=== PATIENT | female | born 1945 | race Caucasian/White ===

== ENCOUNTER → 2016-10-04 | Outpatient (CLI) | payer OTHER, MEDICARE ==
--- NOTE | 2016-10-04 14:40 | US ---
Right lower extremity deep venous ultrasound History: New onset right calf pain. History of DVT. Has been off Warfarin since April 2016. History of IVC filter. Technique: Grayscale and Doppler imaging was performed of the right lower extremity deep venous syst em. Findings: Extensive deep venous thrombosis is seen throughout the right lower extremity. This is see n in the common iliac vein, common external vein, common femoral vein, femoral vein, and popliteal ve in. The calf veins are not well visualized. 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 Impression: Extensive deep venous thrombosis throughout the right lower extremity as above. Message was left for Dr. Vikram Alvarado on 04 October 2016. The patient was also sent back over to [facility] as requested.
== END ==
LOC: FIMAGING 13:02
PROVIDERS: ATTEND Internal Medicine Hematology & Oncology
DX: I82.401 Acute embolism and thrombosis of unspecified deep veins of right lower extremity (principal)

== ENCOUNTER → 2016-10-06 | Outpatient (CLI) | payer OTHER, MEDICARE ==
--- NOTE | 2016-10-06 14:54 | CT ---
CT Brain (Without Contrast) at 1406 hours History: Chronic right subdural hematoma, follow-up. Comparison: September 17, 2016. Technique: Axial computed tomographic images of the brain without contrast. Dose reduction techniques were utilized. Findings: Right extra-axial fluid collection measuring 12 mm in diameter on the coronal series resul ting in mass effect best identified on the coronal series with partial mass effect on the right later al ventricle consistent with chronic subdural hygroma again noted similar to the August 2016 study. No evidence of associated acute hemorrhage. Ventricles, cisterns, and sulci are otherwise widened consistent with atrophy. No hydrocephalus, midl ine shift/herniation, or acute epidural/subdural hematomas. No acute intraparenchymal hemorrhage or m ass effect. Cerebrovascular atherosclerosis. Hypodensities in the white matter of bilateral cerebral hemispheres. Bone windows demonstrate no displaced fractures. Paranasal sinuses and mastoid air cell s are clear. Impression: 1. No significant change in right frontal hypodense chronic subdural hygroma. 2. No acute hemorrhage, hydrocephalus, or mass effect. 3. Cerebrovascular atherosclerosis. 4. No definite acute infarct. 5. Mild cerebral atrophy.
== END ==
LOC: CIMAGING 13:51
PROVIDERS: ATTEND Physician Assistant Surgical
DX: I62.00 Nontraumatic subdural hemorrhage, unspecified (principal); I67.2 Cerebral atherosclerosis
CPT/HCPCS: 70450-PO

== ENCOUNTER → 2016-12-16 | Outpatient (CLI) | payer OTHER, MEDICARE | LOC: BHFA 13:30 | PROVIDERS: ATTEND Internal Medicine Interventional Cardiology | DX: R00.1 Bradycardia, unspecified (principal) ==

== ENCOUNTER 2017-01-17 16:50 | Emergency (ER) | payer OTHER, MEDICARE ==
[2017-01-17 17:02] VITALS: PULSE 69; TEMP 97.9
--- NOTE | 2017-01-17 17:35 | EDPHY ---
H & P Time Seen by Provider: 01/17/17 17:06 HPI/ROS: CHIEF COMPLAINT: Headache HISTORY OF PRESENT ILLNESS: 71-year-old female with a history of subdural hematoma, currently on Coumadin, presents with a headache. 2 weeks ago the trunk of her car fell onto her head. She did not have a headache immediately. However she developed vague headache today, associated with increasing pressure when she bends over. Similar to prior episode of subdural hematoma. No neck pain. Last INR was 1.9. REVIEW OF SYSTEMS: Constitutional: No fever, no chills Eyes: No visual changes ENT: No sore throat Respiratory: No cough, no shortness of breath Cardiac: No chest pain Gastrointestinal: No nausea, no vomiting, no abdominal pain Genitourinary: no dysuria Musculoskeletal: No leg pain or swelling Skin: No rash Neurological: no numbness, no weakness Psychiatric: No depression Past Medical/Surgical History: DVT Subdural hematoma Social History: Smoking Status: Former smoker Physical Exam: General Appearance: Alert, pleasant and smiling Eyes: Pupils equal and round, no conjunctival pallor ENT, Mouth: Mucous membranes moist Neck: Normal inspection Respiratory: Lungs are clear to auscultation Cardiovascular: Regular rate and rhythm, 2/6 systolic murmur Gastrointestinal: Abdomen is soft and nontender Neurological: Alert, oriented x3, cranial nerves II through XII intact, motor 5 /5, sensory intact to light touch Skin: Warm and dry, no rash Extremities: Nontender, no pedal edema Psychiatric: Mood and affect normal Constitutional: Initial Vital Signs Temperature (C) 36.6 C 01/17/17 16:56 Heart Rate 69 01/17/17 16:56 Respiratory Rate 20 01/17/17 16:56 Blood Pressure 140/84 H 01/17/17 16:56 O2 Sat (%) 96 01/17/17 16:56 O2 Delivery Mode Room Air Allergies/Adverse Reactions: cefazolin sodium [From Kefzol] Allergy (Severe, Verified 01/17/17 16:54) Itching adhesive Allergy (Verified 01/17/17 16:54) tape/adhesives cause "blisters" citalopram hydrobromide [From Celexa] Allergy (Verified 01/17/17 16:54) codeine Allergy (Verified 01/17/17 16:54) nausea Pinuipd-Veb-Emt Reductase Inhibitor Allergy (Verified 01/17/17 16:54) Home Medications: Medication Instructions Recorded Herbals/Supplements -Info Only 1 ea PO DAILY 12/12/15 Aspirin [Aspirin 81mg (*)] 81 mg PO DAILY #0 tab.chew 12/17/15 Cholecalciferol Vit D3 [Vitamin D3 1,000 units PO DAILY #0 tab 12/17/15 (*)] Cyanocobalamin [Vitamin B12 (*)] 100 mcg PO DAILY #0 tab 12/17/15 Diazepam [Valium 5 MG (*)] 5 mg PO DAILY PRN #0 tab 12/17/15 Levothyroxine [Synthroid 88 mcg 88 mcg PO DAILY #0 tab 12/17/15 (*)] Metoprolol Tartrate [Lopressor 25 25 mg PO DAILY #0 tab 12/17/15 mg (*)] Pravastatin Sodium [Pravachol] 40 mg PO HS #0 tab 12/17/15 Warfarin Sodium [Coumadin 3MG (*)] 3 mg PO SUMOTUTHFRSA@1600 #0 tab 12/17/15 Warfarin Sodium [Coumadin 4MG (*)] 4 mg PO WE@1600 #0 tab 12/17/15 Medical Decision Making - Diagnostics Imaging Results: Imaging Impressions Head CT 01/17/17 17:24 Impression: 1. Stable mild age-related atrophy. 2. No hemorrhage, mass effect, or definite acute peripheral infarct. 3. Stable mild microvascular ischemic disease. 4. Stable focal small subdural hygroma right posterior frontal superiorly. 5. Interval development of small lacunar infarct right posterior caudate region. This does not appear to be an acute abnormality. Findings discussed with the medical screener with Rachel Alberto M.D. at 18: 11 hour, 01/17/2017. ED Course/Re-evaluation: CT scan results discussed with the patient and her . Fortunately there is no evidence of recurrent or worsening subdural hematoma. The lacunar infarct was discussed. She has no acute neurologic symptoms. She will continue taking Coumadin. She will return for worsening headache or any concerns. Differential Diagnosis: Headache including but not limited to subarachnoid hemorrhage, migraine headache , tension headache and infectious causes such as meningitis, pharyngitis and sinusitis. - Data Points Laboratory Results: 01/17/17 17:45 PT 20.3 SEC H SEC (12.0-15.0) INR 1.73 H (0.83-1.16) Departure - Departure Disposition: Home, Routine, Self-Care Clinical Impression: Headache Qualifiers: Headache type: unspecified Headache chronicity pattern: acute headache Intractability: not intractable Qualified Code(s): R51 - Headache Condition: Good Instructions: Acute Headache (ED) Additional Instructions: Return for worsening headache, any concerns. Your protime is 1.73 today. Follow-up with your doctor tomorrow regarding Coumadin dosing. Referrals: Delmi Jasmine MD [Primary Care Provider] - As per Instructions
[2017-01-17 18:07] LABS: INR 1.73 (0.83-1.16); PROTIME(PATIENT) 20.3 SEC (12.0-15.0)
[2017-01-17 18:49] VITALS: BP 135/95; RESP 16; O2SAT 93
== END 2017-01-17 18:49 | disposition home or self-care (01) ==
DX: S09.90XA Unspecified injury of head, initial encounter (principal); Z79.01 Long term (current) use of anticoagulants; Z79.82 Long term (current) use of aspirin; Z87.891 Personal history of nicotine dependence; W20.8XXA Other cause of strike by thrown, projected or falling object, initial encounter

== ENCOUNTER → 2017-01-28 | Outpatient (CLI) | payer OTHER, MEDICARE | LOC: BHLMT 09:15 | PROVIDERS: ATTEND Internal Medicine | DX: R01.1 Cardiac murmur, unspecified (principal); I25.10 Atherosclerotic heart disease of native coronary artery without angina pectoris | CPT/HCPCS: 93306-PO; 93880-PO ==

== ENCOUNTER → 2017-04-15 | Outpatient (CLI) | payer OTHER, MEDICARE | LOC: CIMAGING 08:33 | PROVIDERS: ATTEND Internal Medicine | DX: I86.8 Varicose veins of other specified sites (principal); K76.89 Other specified diseases of liver; N28.1 Cyst of kidney, acquired; Z95.5 Presence of coronary angioplasty implant and graft | CPT/HCPCS: 76700-PO ==

== ENCOUNTER → 2017-09-01 | Outpatient (CLI) | payer OTHER, MEDICARE | LOC: FIMAGING 09:44 | PROVIDERS: ATTEND Internal Medicine Hematology & Oncology | DX: Z12.31 Encounter for screening mammogram for malignant neoplasm of breast (principal); Z80.3 Family history of malignant neoplasm of breast | CPT/HCPCS: G0202-52 ==

== ENCOUNTER → 2017-09-06 | Outpatient (CLI) | payer OTHER, MEDICARE ==
[~2017-09-06] MED LIST: IOPAMIDOL (ISOVUE 370) 100 ML BTL IV ONE
== END ==
LOC: FIMAGING 08:57
PROVIDERS: ATTEND Radiology Diagnostic Radiology
DX: J98.4 Other disorders of lung (principal); Z86.79 Personal history of other diseases of the circulatory system
CPT/HCPCS: 71260; 74177; Q9967

== ENCOUNTER → 2018-09-04 | Outpatient (CLI) | payer OTHER, MEDICARE | LOC: FIMAGING 11:11 | PROVIDERS: ATTEND Internal Medicine Hematology & Oncology | DX: Z12.31 Encounter for screening mammogram for malignant neoplasm of breast (principal); Z85.3 Personal history of malignant neoplasm of breast; Z90.12 Acquired absence of left breast and nipple; Z80.3 Family history of malignant neoplasm of breast ==